=== PATIENT | female | born 1980 | race Caucasian/White ===

== ENCOUNTER → 2017-04-11 | Outpatient (CLI) | payer BC ==
[~2017-04-11] MED LIST: ALEVE PO; CIPRO PO; IRON325 ( 651 PO; NECON1 EACH PO; PERCOCET5/325 PO; PHENERGAN PO; PREDNISONE PO
--- NOTE | ~2017-04-11 | CR63 ---
[facility] RADIOLOGY TEXT RESULTS PATIENT: GELACIO MONTOYA LOCATION: [facility] : 76 UNIT #: [id number] AGE: [address]: Francisco Garcia MD SEX: F ORDER DR: [id number] [facility]. [place], [place] [address] [id number] O MR#: [id number] Acc #: [id number] NAME: GELACIO MONTOYA : 1980 SEX: F STUDY DATE/TIME: 04/11/2017 19:56 UNIT: [facility] ROOM: STUDY DESCRIPTION: CR Chest 2 View Attending Physician: Francisco Garcia M.D. Ordering Physician: Francisco Garcia M.D. Primary Care Physician: Keisha Seymour M.D. MEDICAL IMAGING REPORT This report is preliminary unless electronic signature is present EXAM PA and lateral chest HISTORY Positive PPD skin test. Cough and congestion today. It started a few days ago. COMPARISON STUDIES . FINDINGS PA and lateral examination of the chest upright shows a good expansion of the parenchyma with a normal distribution of the pulmonary vascularity. There is no indication of congestion, effusion, infiltrate, tumor, or nodular density. The pleural reflections and diaphragmatic contours are normal. The cardiac silhouette and mediastinal anatomy is within normal limits. IMPRESSION Normal chest. Dictated by... Agustin Vaughn M.D. THIS IS AN ELECTRONICALLY VERIFIED REPORT Agustin Vaughn M.D. at 04/12/2017 2:56 PM FEL/pcl TD: 04/12/2017 14:51 JOB #: [id number] [facility] RADIOLOGY TEXT RESULTS PATIENT: GELACIO MONTOYA LOCATION: [facility] : 76 UNIT #: [id number] AGE: [address]: Francisco Garcia MD SEX: F ORDER DR: MEDICAL IMAGING REPORT Page 1 of 1 COPY
== END | disposition home or self-care (01) ==
LOC: CRAD 19:41
DX: M06.09 Rheumatoid arthritis without rheumatoid factor, multiple sites (principal)
CPT/HCPCS: 71020